=== PATIENT | female | born 1960 | race Hispanic/Latino ===

== ENCOUNTER 2019-07-25 14:04 | Emergency (ER) | payer OTHER, SELFPAY ==
[2019-07-25] MEDS ORDERED: KETOROLAC TROMETHAMINE 60 MG/2 ML VIAL ONE (14:38)
[2019-07-25] MEDS ORDERED: CYCLOBENZAPRINE HCL 10 MG TABLET ONE (14:38)
[2019-07-25] MEDS ORDERED: ONDANSETRON ODT 4 MG TAB ONE (15:29)
[2019-07-25] MEDS ORDERED: MORPHINE SULFATE 4 MG/1ML SYG ONE (15:30)
== END 2019-07-25 16:48 | disposition home or self-care (01) ==
LOC: EDH 14:04
DX: M54.31 Sciatica, right side (principal); E11.9 Type 2 diabetes mellitus without complications; I10 Essential (primary) hypertension
CPT/HCPCS: 72100; 73502; 74176; 96372 ×2; 99284; J1885; J2270